=== PATIENT | female | born 1970 | race Caucasian/White ===

== ENCOUNTER 2024-07-30 10:21 | Day surgery (SDC) | payer OTHER ==
[~2024-07-30] VITALS: Ht 160 cm; Wt 85.3 kg
[2024-07-30] MEDS ORDERED: fentaNYL citrate 0.05 MG/ML VIAL ONE (11:45)
[2024-07-30] MEDS: fentaNYL citrate 0.05 MG/ML VIAL IVP ONE (12:32)
[2024-07-30] MEDS: LIDOCAINE 2% 100 MG/5 ML UJET TP ONE (12:35)
== END 2024-07-30 13:42 | disposition home or self-care (01) ==
LOC: MDS 10:21 → MMU 10:32 → MDS 13:42
PROVIDERS: ATTEND Internal Medicine Gastroenterology
DX: Z12.11 Encounter for screening for malignant neoplasm of colon (principal); D12.5 Benign neoplasm of sigmoid colon; K21.9 Gastro-esophageal reflux disease without esophagitis; Z98.891 History of uterine scar from previous surgery
CPT/HCPCS: 45385; J3010; 88305